=== PATIENT | female | born 1950 | race Native Hawaiian/Other Pacific Islander ===

== ENCOUNTER 2018-10-20 11:02 | Outpatient (CLI) | payer OTHER ==
[2018-10-20 11:48] LABS: PLATELET COUNT 76 K/uL (152-353)
[2018-10-20 11:58] LABS: POTASSIUM 4.4 mmol/L (3.6-5.2)
== END 2018-10-20 19:33 | disposition home or self-care (01) ==
LOC: LABW 11:02
PROVIDERS: Internal Medicine Gastroenterology
DX: K74.69 Other cirrhosis of liver (principal); K59.1 Functional diarrhea
CPT/HCPCS: 36415; 80053; 85027; 85610

== ENCOUNTER 2018-10-22 12:53 | Outpatient (CLI) | payer OTHER | END 2018-10-22 23:59 | disposition home or self-care (01) | LOC: LAB 12:53 | DX: K74.69 Other cirrhosis of liver (principal); K59.1 Functional diarrhea | CPT/HCPCS: 82272; 82705; 83630; 87015; 87045; 87324; 87328; 87329; 87449; 87899 ==